=== PATIENT | male | born 1945 | race Caucasian/White ===

== ENCOUNTER → 2019-11-09 09:56 | Outpatient (BNVA) | payer MEDICARE, SELFPAY | PROVIDERS: Referring Provider Chiropractor Orthopedic; Visit Provider Dermatology | DX: Z85.828 Personal history of other malignant neoplasm of skin (principal); D48.5 Neoplasm of uncertain behavior of skin; L57.0 Actinic keratosis; L72.0 Epidermal cyst; I78.1 Nevus, non-neoplastic | CPT/HCPCS: 11102; 17000; 88304; 99203 ==

== ENCOUNTER → 2019-12-15 12:55 | Outpatient (BNVA) | payer MEDICARE, SELFPAY | PROVIDERS: Visit Provider Dermatology | DX: D48.9 Neoplasm of uncertain behavior, unspecified (principal) | CPT/HCPCS: 88304 ==

== ENCOUNTER → 2023-03-04 13:17 | Outpatient (BNVA) | payer MEDICARE, SELFPAY | PROVIDERS: Referring Provider Nurse Practitioner Family; Visit Provider Surgery | DX: K40.90 Unilateral inguinal hernia, without obstruction or gangrene, not specified as recurrent (principal) | CPT/HCPCS: 99204 ==

== ENCOUNTER → 2025-02-10 07:44 | Outpatient (BNVA) | payer OTHER, SELFPAY | PROVIDERS: Visit Provider Orthopaedic Surgery | DX: M54.9 Dorsalgia, unspecified (principal); M25.551 Pain in right hip | CPT/HCPCS: 72110; 73523 ==

== ENCOUNTER 2025-02-23 08:59 | Outpatient (RCR) | payer OTHER, SELFPAY | END 2025-02-23 23:59 | disposition home or self-care (01) | LOC: MPT 08:59 | PROVIDERS: Visit Provider Orthopaedic Surgery | DX: M54.9 Dorsalgia, unspecified (principal); G89.29 Other chronic pain | CPT/HCPCS: 97162 ==